=== PATIENT | female | born 1950 | race Caucasian/White ===

== ENCOUNTER 2017-11-04 13:47 | Outpatient (CLI) | payer MEDICARE ==
[2017-11-04] MEDS ORDERED: Gadobenate Dimeglumine 529 MG/1 ML (20ML VIAL) ONE (16:15)
== END 2017-11-04 13:48 | disposition home or self-care (01) ==
LOC: BICMRI 13:47
PROVIDERS: ATTEND Psychiatry & Neurology Neurology
DX: S06.890A Other specified intracranial injury without loss of consciousness, initial encounter (principal)
CPT/HCPCS: 70553; A9579

== ENCOUNTER 2018-08-29 12:59 | Outpatient (CLI) | payer MEDICARE | END 2018-08-29 13:00 | disposition home or self-care (01) | LOC: BICMAMMO 12:59 | PROVIDERS: ATTEND Family Medicine | DX: Z12.31 Encounter for screening mammogram for malignant neoplasm of breast (principal) | CPT/HCPCS: 77063; 77067 ==

== ENCOUNTER 2019-04-09 10:46 | Outpatient (CLI) | payer MEDICARE ==
--- NOTE | 2019-04-09 12:23 | RAD ---
LEFT HIP TWO VIEWS: History: Low back pain, bilateral hip pain. FINDINGS/IMPRESSION: There are mild degenerative changes. No fracture or dislocation or bony destruction is identified. POS: TPC
--- NOTE | 2019-04-09 12:24 | RAD ---
RIGHT HIP History: Bilateral hip pain and low back pain. FINDINGS/IMPRESSION: There are mild degenerative changes. No fracture, dislocation, or bony destruction is identified. POS: T[facility]
== END 2019-04-09 10:47 | disposition home or self-care (01) ==
LOC: TBSIIMAG 10:46
PROVIDERS: ATTEND Neurological Surgery
DX: M51.36 Other intervertebral disc degeneration, lumbar region (principal); M47.816 Spondylosis without myelopathy or radiculopathy, lumbar region

== ENCOUNTER 2019-04-17 09:52 | Outpatient (CLI) | payer MEDICARE ==
--- NOTE | 2019-04-17 10:21 | RAD ---
LUMBAR SPINE THREE VIEWS: INDICATIONS: Lumbar stenosis with neurogenic claudication. FINDINGS: There is retrolisthesis of L3 on L4, L2 on L3, and L1 on L2. The retrolisthesis of L2 on L3 and L1 o n L2 is accentuated with extension but does not appreciably reduce with flexion. The retrolisthesis of L3 on L4 is stable with extension and flexion. There is accentuation of the lordot ic curvature of the lumbar spine with multilevel disc degenerative disease, most pronounced at L1-L2. There is severe facet osteoarthrosis at L3-4 through L5-S1. No acute fracture is evident. S urgical clips are seen within the upper abdomen. IMPRESSION: 1. Abnormal translational motion at L1-L2 and L2-3. 2. Mild retrolisthesis of L1 on L2, L2 on L3, and L3 on L4. 3. No abnormal translational motion is evident at L3-L4. Transcribed Date/Time: 04/17/2019 10:40 AM
== END 2019-04-17 09:53 | disposition home or self-care (01) ==
LOC: RAD 09:52
PROVIDERS: ATTEND Nurse Practitioner Family
DX: M48.062 Spinal stenosis, lumbar region with neurogenic claudication (principal); M43.16 Spondylolisthesis, lumbar region
CPT/HCPCS: 72100

== ENCOUNTER 2019-12-28 15:42 | Outpatient (CLI) | payer MEDICARE ==
--- NOTE | 2019-12-29 09:44 | MMO ---
Bilateral MAMMO Bilat Screen [facility]. CLINICAL HISTORY: Patient is 69 years old and is seen for screening. The patient has no family history of breast cancer. The patient has no personal history of cancer. The patient has a history of left Excisional Biopsy in 2004 - benign. VIEWS: The views performed were: bilateral craniocaudal with tomosynthesis and bilateral mediolateral oblique with tomosynthesis. FILMS COMPARED: The present examination has been compared to prior imaging studies performed at [facility] on 02/03/2015 and 08/29/2018, and at [facility] on 05/31/2010 and 06/12/2011. This study has been interpreted with the assistance of computer-aided detection. MAMMOGRAM FINDINGS: There are scattered fibroglandular densities. There are no suspicious masses, suspicious calcifications, or new areas of architectural distortion. IMPRESSION: THERE IS NO MAMMOGRAPHIC EVIDENCE OF MALIGNANCY. A ROUTINE FOLLOW-UP MAMMOGRAM IN 1 YEAR IS RECOMMENDED. THE RESULTS OF THIS EXAM WERE SENT TO THE PATIENT. ACR BI-RADS Category 1 - Negative MAMMOGRAPHY NOTE: 1. A negative mammogram report should not delay a biopsy if a dominant of clinically suspicious mass is present. 2. Approximately 10% to 15% of breast cancers are not detected by mammography. 3. Adenosis and dense breasts may obscure an underlying neoplasm. Reported by: NAOMI MAURER MD Electonically Signed: [id number]
== END 2019-12-28 15:43 | disposition home or self-care (01) ==
LOC: BICMAMMO 15:42
PROVIDERS: ATTEND Internal Medicine
DX: Z12.31 Encounter for screening mammogram for malignant neoplasm of breast (principal); Z91.89 Other specified personal risk factors, not elsewhere classified
CPT/HCPCS: 77063; 77067

== ENCOUNTER 2020-01-08 15:25 | Outpatient (CLI) | payer MEDICARE ==
--- NOTE | 2020-01-08 16:11 | RAD ---
Exam: XR Finger(s) Rt Min 2 View HISTORY: Strain right small finger. Patient states smashed finger between a heavy box and a door. Continued pa in. COMPARISON: None FINDINGS: No acute fracture, dislocation, or other acute osseous abnormality is identified. IMPRESSION: No acute osseous abnormality is identified.
== END 2020-01-08 15:26 | disposition home or self-care (01) ==
LOC: BICRAD 15:25
PROVIDERS: ATTEND Internal Medicine
DX: S66.911A Strain of unspecified muscle, fascia and tendon at wrist and hand level, right hand, initial encounter (principal)

== ENCOUNTER 2020-06-22 08:31 | Outpatient (CLI) | payer MEDICARE ==
--- NOTE | 2020-06-22 09:13 | ULT ---
ULTRASOUND ABDOMINAL AORTA: HISTORY: Screening for abdominal aortic aneurysm FINDINGS: The abdominal aortic measurements are as follows: Proximal: 2.4 x 2.8cm Mid: 1.9 x 1.8cm Distal: 1.9 x 1.8cm IMPRESSION: No evidence of abdominal aortic aneurysm.
--- NOTE | 2020-06-22 11:25 | BD ---
DEXA SCAN: Date: 06/22/2020[ INDICATION: History of osteoporosis screening in a 69-year-old female. COMPARISON: None. FINDINGS: Lumbar Spine: BMD (g/cm2) L1 1.170 T-Score: 1.6 Z-Score: 3.6 L2 1.223 T-Score: 1.8 Z-Score: 3.9 L3 1.188 T-Score: 0.9 Z-Score: 3.2 L4 1.252 T-Score: 1.7 Z-Score: 4.1 L1-L4 1.209 T-Score: 1.5 Z-Score: 3.7 Left Femoral Neck: 0.863 T-Score: 0.1 Z-Score: 2.0 Left Total Hip: 1.074 T-Score: 1.1 Z-Score: 2.7 IMPRESSION: Based on WHO criteria, the patient's bone mineral density is within normal limits. The patient is at low risk for fracture. POS: AH
== END 2020-06-22 08:32 | disposition home or self-care (01) ==
LOC: BICULT 08:31
PROVIDERS: ATTEND Internal Medicine
DX: Z13.6 Encounter for screening for cardiovascular disorders (principal); Z13.820 Encounter for screening for osteoporosis; Z78.0 Asymptomatic menopausal state
CPT/HCPCS: 76775; 77080

== ENCOUNTER 2020-08-04 10:09 | Emergency (ER) | payer MEDICARE ==
[2020-08-04] MEDS ORDERED: Acetaminophen 500 MG TAB ONE (10:49)
[2020-08-04 10:55] LABS: #Basophils 0.1 thou/uL (0.0-0.2); #Eosinphils 0.2 thou/uL (0.0-0.7); #Lymphocytes 2.2 thou/uL (1.20-3.40); #Monocytes 0.4 thou/uL (0.11-0.59); #Neutrophils 3.7 thou/uL (1.40-6.50); %Basophils 1.1 % (0.0-1.0); %Eosinophils 2.7 % (0.0-10.0); %Lymphocytes 33.4 % (21.0-51.0); %Monocytes 6.2 % (0.0-10.0); %Neutrophils 56.6 % (42.0-75.0); Hemoglobin 11.9 g/dL (12.0-16.0); Mean Corpuscular Hemoglobin 30.8 pg (27.0-31.0); Mean Corpuscular Volume 93.4 fL (78.0-98.0); Mean Platelet Volume 8.9 fL (7.4-10.4); Platelet Count 192 thou/uL (130-400); Red Blood Cell (RBC) Count 3.88 mill/uL (4.20-5.40); White Blood Cell (WBC) Count 6.6 thou/uL (4.8-10.8)
--- NOTE | 2020-08-04 10:55 | RAD ---
PORTABLE CHEST: Date: 08/04/2020 HISTORY: Shortness of breath. FINDINGS: Heart size is within normal limits for portable technique. Mediastinal structures appear unremarkable . Lungs appear clear of any infiltrates. IMPRESSION: No active intrathoracic disease. POS: LA[facility]
[2020-08-04 11:22] LABS: ALT (SGPT) 8 U/L (8-55); AST (SGOT) 11 U/L (5-34); Albumin 4.3 g/dL (3.4-4.8); Alkaline Phosphatase 94 U/L (40-110); Anion Gap 10 mmol/L (10-20); BUN (Urea Nitrogen) 12 mg/dL (9.8-20.1); Bilirubin, Total 0.5 mg/dL (0.2-1.2); Calc. Creatinine Clearance 0 mL/min (70-130); Calcium 9.2 mg/dL (7.8-10.44); Carbon Dioxide 31 mmol/L (23-31); Chloride 105 mmol/L (98-107); Globulin 2.4 g/dL (2.4-3.5); Glucose 97 mg/dL (83-110); Protein, Total 6.7 g/dL (6.0-8.3); Sodium 142 mmol/L (136-145)
[2020-08-04 13:35] LABS: SARS-CoV-2 NAA Rapid Test Not Detected (NotDetected)
--- NOTE | 2020-08-04 17:29 | HP ---
ADMIT/DISCHARGE SUMMARY: DISCHARGE DIAGNOSES: 1. Bradycardia, asymptomatic. 2. Osteoarthritis. HOSPITAL COURSE: The patient is a 69-year-old female, who presents to the hospital with complaints of generalized fatigue going on for the past 2 weeks. 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 At this time, she has tested negative for COVID. She was noted in the ER to have bradycardia, heart rate was in the 40s. She also endorses some body aches and scratchy throat, some chills, but denies any chest tightness. She did state that she had some sharp chest pain. She denies any other cardiac history. The patient stated that she saw Dr. Fierro a long time back for lower extremity swelling. However, a complete workup was done, which was negative. REVIEW OF SYSTEMS: All negative except for the ones mentioned above in the HPI. PAST MEDICAL HISTORY: She has a history of osteoarthritis. PAST SURGICAL HISTORY: She has had cholecystectomy, hysterectomy, and oophorectomy. SOCIAL HISTORY: She denies any alcohol use, drug use, or smoking history. She is a full code. She lives alone with her dog. PHYSICAL EXAMINATION: VITAL SIGNS: Temperature of 98.4, O2 saturations 97% on 2 L, blood pressure 160/60, and heart rate was 62, when I was visiting her; however, she has been known to be in the low 48. LABORATORY RESULTS: As of the following; WBC of 6.6, hemoglobin of 11.9, hematocrit of 36.2, and platelets of 192. Chemistry; sodium of 142, potassium of 4.0, BUN of 12, and creatinine of 0.87. Troponin x1 was negative. BNP was mildly elevated to 100.7. Serology, a rapid for COVID was negative. FAMILY HISTORY: No history of heart disease or stroke. Brother does have cancer. ASSESSMENT AND PLAN: The patient is a 69-year-old female, who initially presented to the hospital for bradycardia; however, she wanted to leave against medical advice. States that she has too many personal things going on. She cannot stay in the hospital to see a metal box maker. I did make an appointment with Dr. Fontana for her on August 10 at 1 p.m. and this was relayed to the patient and also the patient was aware that she needs to come 15 to 20 minutes before her appointment. I also told the patient that if she has worsening symptoms, she needs to come back to the ER or call 911. She will sign the against medical advice papers. I cannot discharge her given her bradycardia and she was pretty significantly symptomatic and this is something new going on for the past couple weeks. We will also check a TSH before she leaves the hospital. Job ID: [id number]
== END 2020-08-04 15:15 | disposition left against medical advice (07) ==
LOC: ERS 10:09
DX: R00.1 Bradycardia, unspecified (principal); R06.02 Shortness of breath; R05 Cough; R09.89 Other specified symptoms and signs involving the circulatory and respiratory systems; R53.83 Other fatigue; M79.10 Myalgia, unspecified site; M19.90 Unspecified osteoarthritis, unspecified site; Z20.828 Contact with and (suspected) exposure to other viral communicable diseases; Z79.899 Other long term (current) drug therapy
CPT/HCPCS: 0240U; 71045; 83880; 84484 ×2; 85379; 93005; 36415; 80053; 84443; 85025

== ENCOUNTER 2020-11-22 14:41 | Outpatient (CLI) | payer MEDICARE | END 2020-11-22 14:42 | disposition home or self-care (01) | LOC: BICRAD 14:41 | PROVIDERS: ATTEND Nurse Practitioner Family | DX: M48.062 Spinal stenosis, lumbar region with neurogenic claudication (principal); M54.6 Pain in thoracic spine; M47.814 Spondylosis without myelopathy or radiculopathy, thoracic region; M47.816 Spondylosis without myelopathy or radiculopathy, lumbar region | CPT/HCPCS: 72072; 72110 ==

== ENCOUNTER 2020-12-15 11:16 | Emergency (ER) | payer MEDICARE ==
[2020-12-15] MEDS ORDERED: Fentanyl 100 MCG/2 ML VIAL ONE (12:02)
[2020-12-15] MEDS ORDERED: Cyclobenzaprine 10 MG TAB ONE (12:14)
[2020-12-15 12:18] LABS: #Basophils 0.1 thou/uL (0.0-0.2); #Lymphocytes 1.3 thou/uL (1.20-3.40); #Monocytes 0.2 thou/uL (0.11-0.59); #Neutrophils 6.5 thou/uL (1.40-6.50); %Basophils 1.1 % (0.0-1.0); %Eosinophils 0.3 % (0.0-10.0); %Lymphocytes 16.2 % (21.0-51.0); %Monocytes 2.8 % (0.0-10.0); %Neutrophils 79.6 % (42.0-75.0); Hemoglobin 13.1 g/dL (12.0-16.0); Mean Corpuscular HGB CONC 33.1 g/dL (32.0-36.0); Mean Corpuscular Hemoglobin 30.2 pg (27.0-31.0); Mean Corpuscular Volume 91.3 fL (78.0-98.0); Mean Platelet Volume 8.7 fL (7.4-10.4); Platelet Count 173 thou/uL (130-400); RBC Distribution Width 11.7 % (11.5-14.5); Red Blood Cell (RBC) Count 4.34 mill/uL (4.20-5.40); White Blood Cell (WBC) Count 8.2 thou/uL (4.8-10.8)
[2020-12-15 12:42] LABS: ALT (SGPT) 9 U/L (8-55); AST (SGOT) 16 U/L (5-34); Albumin 4.2 g/dL (3.4-4.8); Alkaline Phosphatase 104 U/L (40-110); Anion Gap 10 mmol/L (10-20); BUN (Urea Nitrogen) 15 mg/dL (9.8-20.1); Bilirubin, Total 0.7 mg/dL (0.2-1.2); Calc. Creatinine Clearance 0 mL/min (70-130); Calcium 9.5 mg/dL (7.8-10.44); Carbon Dioxide 29 mmol/L (23-31); Chloride 103 mmol/L (98-107); Globulin 2.8 g/dL (2.4-3.5); Glucose 101 mg/dL (83-110); Lipase 5 U/L (8-78); Potassium 4.3 mmol/L (3.5-5.1); Sodium 138 mmol/L (136-145)
[2020-12-15 13:07] LABS: Bacteria/HPF 3+ HPF (None Seen); Bilirubin Negative (Negative); Blood, Urine Negative (Negative); Clarity Turbid (Clear); Glucose, Urine (Dipstick) Normal (Negative); Ketone, Urine Negative (Negative); Leukocyte 500 Leu/uL (Negative); Nitrite Negative (Negative); Protein, Urine (Dipstick) Negative (Neg-Trace); Specific Gravity, Urine 1.007 (1.002-1.036); Squamous Epithelial 0-3 HPF (0-3); Transitional Epithelial 0-3 HPF (None Seen); Urobilinogen Normal mg/dL (Less than 2); WBC/HPF Greater than 50 HPF (0-3)
[2020-12-15] MEDS ORDERED: Morphine 4 MG/ML VIAL ONE (13:24)
== END 2020-12-15 15:03 | disposition home or self-care (01) ==
LOC: ERS 11:16
DX: M47.814 Spondylosis without myelopathy or radiculopathy, thoracic region (principal); N30.90 Cystitis, unspecified without hematuria; M19.90 Unspecified osteoarthritis, unspecified site; Z79.899 Other long term (current) drug therapy; Z79.82 Long term (current) use of aspirin
CPT/HCPCS: 72128; 72131; 80053; 81003; 81015; 83690; 84484; 85025; 87077; 87086; 87186; 93005; 94760; 96374; 96375; J2270; J3010

== ENCOUNTER 2020-12-16 12:42 | Outpatient (CLI) | payer MEDICARE | END 2020-12-16 12:43 | disposition home or self-care (01) | LOC: TBSIIMAG 12:42 | PROVIDERS: ATTEND Nurse Practitioner Family | DX: M47.22 Other spondylosis with radiculopathy, cervical region (principal); M47.814 Spondylosis without myelopathy or radiculopathy, thoracic region; M51.34 Other intervertebral disc degeneration, thoracic region; M48.04 Spinal stenosis, thoracic region | CPT/HCPCS: 72146; 72148 ==

== ENCOUNTER 2021-03-30 14:25 | Outpatient (CLI) | payer MEDICARE | END 2021-03-30 14:26 | disposition home or self-care (01) | LOC: BICCT 14:25 | PROVIDERS: ATTEND Psychiatry & Neurology Neurology | DX: G43.109 Migraine with aura, not intractable, without status migrainosus (principal) | CPT/HCPCS: 70450 ==

== ENCOUNTER 2021-08-23 12:48 | Inpatient (IN) | payer MEDICARE ==
[~2021-08-23 12:48] MED LIST: Iopamidol-370 76% 500 ML 1 ML ONE
[2021-08-23 13:53] LABS: Hemoglobin 10.8 g/dL (12.0-16.0); Mean Corpuscular HGB CONC 33.4 g/dL (32.0-36.0); Mean Corpuscular Hemoglobin 31.1 pg (27.0-31.0); Mean Corpuscular Volume 93.1 fL (78.0-98.0); Mean Platelet Volume 7.5 fL (7.4-10.4); Platelet Count 209 thou/uL (130-400); RBC Distribution Width 11.5 % (11.5-14.5); Red Blood Cell (RBC) Count 3.48 mill/uL (4.20-5.40); White Blood Cell (WBC) Count 20.5 thou/uL (4.8-10.8)
[2021-08-23 14:05] LABS: PTT 79.6 sec (22.9-36.1); Prothrombin Time 57.6 sec (12.0-14.7)
[2021-08-23 14:08] LABS: INR-International Normal Ratio 6.3
[2021-08-23 14:13] LABS: ALT (SGPT) 94 U/L (8-55); AST (SGOT) 146 U/L (5-34); Albumin 2.8 g/dL (3.4-4.8); Alkaline Phosphatase 137 U/L (40-110); Anion Gap 9 mmol/L (10-20); BUN (Urea Nitrogen) 10 mg/dL (9.8-20.1); CK (CPK) 70 U/L (29-168); Calc. Creatinine Clearance 0 mL/min (70-130); Calcium 7.9 mg/dL (7.8-10.44); Carbon Dioxide 33 mmol/L (23-31); Chloride 100 mmol/L (98-107); Globulin 2.4 g/dL (2.4-3.5); Glucose 116 mg/dL (83-110); Potassium 3.1 mmol/L (3.5-5.1); Protein, Total 5.2 g/dL (5.8-8.1); Sodium 139 mmol/L (136-145)
[2021-08-23 14:14] LABS: Band 17 % (5-11); Lymphocytes 7 % (21-51); MDiff Complete? YES; Monocytes 3 % (0-10); Neutrophil 71 % (42-75); Platelet Morphology Comment Appears Adequate; Polychromasia SLIGHT = 2-3 cells (100X) (0-2/hpf); Reactive Lymphocytes 1 % (0-10)
[2021-08-23 14:36] LABS: CKMB 0.5 ng/mL (0-6.6)
[2021-08-23] MEDS ORDERED: Cefepime 2 GM VIAL ONE (14:39)
[2021-08-23] MEDS ORDERED: VANCOMYCIN 1.75 GM/350 ML BAG 1.75 GM in Premix Bag 1 BAG IVPB SCH (15:00)
[2021-08-23 15:08] LABS: Bilirubin Negative (Negative); Blood, Urine Negative (Negative); Clarity Clear (Clear); Glucose, Urine (Dipstick) Normal (Negative); Ketone, Urine Negative (Negative); Leukocyte Negative Leu/uL (Negative); Nitrite Negative (Negative); Protein, Urine (Dipstick) 10 mg/dL (Neg-Trace); Specific Gravity, Urine 1.013 (1.002-1.036); Urobilinogen Normal mg/dL (Less than 2); pH, Urine 5.5 (5.0-9.0)
[2021-08-23] MEDS ORDERED: HUM PROTHROMBIN CPLX IV SCH (16:00)
[2021-08-23] MEDS ORDERED: [UNRECOGNIZED DRUG - OTHER] IV SCH (16:00)
[2021-08-23] MEDS ORDERED: HUMAN PROTHROMBIN COMPLX IV SCH (16:00)
[2021-08-23] MEDS ORDERED: Phytonadione 10 MG/ML AMP ONE (16:14)
[2021-08-23 16:28] LABS: SARS-CoV-2 NAA Rapid Test Not Detected (NotDetected)
[2021-08-23] MEDS ORDERED: NS 0.9% w/ 40 MEQ KCL 1,000 ML IV SCH (16:30)
[2021-08-23] MEDS ORDERED: Electrolyte Replacement Protocol FS PRN (16:30)
[2021-08-23] MEDS ORDERED: Potassium Chloride 20 MEQ TAB PO SCH (16:30)
[2021-08-23] MEDS ORDERED: Electrolyte Replacement Protocol 1 EACH FS SCH (16:30)
[2021-08-23 17:03] LABS: Magnesium 1.5 mg/dL (1.6-2.6)
[2021-08-23 17:13] LABS: Phosphorus 1.6 mg/dL (2.3-4.7)
[2021-08-23 17:39] LABS: Troponin I 0.074 ng/mL (< 0.028)
[2021-08-23] MEDS ORDERED: Magnesium Sulfate 4 GM in Sodium Chloride 0.9% 250 ML 250 ML IVPB SCH (17:45)
[2021-08-23] MEDS ORDERED: Ondansetron ODT 4 MG TAB PO PRN (18:53)
[2021-08-23] MEDS ORDERED: Loperamide HCl 2 MG CAP PO PRN (18:53)
[2021-08-23] MEDS ORDERED: Acetaminophen 650 MG Suppository PR PRN (18:53)
[2021-08-23] MEDS ORDERED: Ondansetron PF 4 MG/2 ML Vial IVP PRN (18:53)
[2021-08-23 20:42] LABS: Platelet Count 210 thou/uL (130-400)
[2021-08-23] MEDS ORDERED: Norepinephrine 8 MG/0.9% NS 250 ML ONE (20:42)
[2021-08-23] MEDS ORDERED: Pantoprazole 40 MG VIAL IVP SCH (21:00)
[2021-08-23] MEDS ORDERED: Norepinephrine 8 MG/0.9% NS 250 ML IVPB SCH (21:00)
[2021-08-23 21:07] LABS: Troponin I 0.038 ng/mL (< 0.028)
[2021-08-23 21:28] LABS: Mean Corpuscular HGB CONC 32.5 g/dL (32.0-36.0); Mean Corpuscular Hemoglobin 30.4 pg (27.0-31.0); Mean Corpuscular Volume 93.6 fL (78.0-98.0); Mean Platelet Volume 8.4 fL (7.4-10.4); Platelet Count 221 thou/uL (130-400); RBC Distribution Width 11.7 % (11.5-14.5); Red Blood Cell (RBC) Count 3.63 mill/uL (4.20-5.40); White Blood Cell (WBC) Count 21.6 thou/uL (4.8-10.8)
[2021-08-23 21:46] LABS: Band 16 % (5-11); Hypochromia SLIGHT = 6-15 cells (100X) (0-5/hpf); Lymphocytes 7 % (21-51); MDiff Complete? YES; Monocytes 16 % (0-10); Neutrophil 61 % (42-75); Platelet Morphology Comment Appears Adequate
[2021-08-23] MEDS: Sodium Chloride 0.9% 1,000 ML IV SCH (22:07)
[2021-08-23 22:23] LABS: ALT (SGPT) 86 U/L (8-55); AST (SGOT) 112 U/L (5-34); Albumin 2.6 g/dL (3.4-4.8); Alkaline Phosphatase 128 U/L (40-110); Anion Gap 11 mmol/L (10-20); BUN (Urea Nitrogen) 13 mg/dL (9.8-20.1); Bilirubin, Total 1.3 mg/dL (0.2-1.2); Calc. Creatinine Clearance 77 mL/min (70-130); Calcium 7.5 mg/dL (7.8-10.44); Carbon Dioxide 27 mmol/L (23-31); Chloride 103 mmol/L (98-107); Globulin 2.3 g/dL (2.4-3.5); Glucose 104 mg/dL (83-110); Protein, Total 4.9 g/dL (5.8-8.1); Sodium 138 mmol/L (136-145)
[2021-08-23 22:26] LABS: Potassium 2.9 mmol/L (3.5-5.1)
[2021-08-23] MEDS ORDERED: Potassium Phosphate 15 MMOL in Sodium Chloride 0.9% 100 ML IVPB SCH (23:00)
[2021-08-24 00:07] LABS: Hemoglobin 10.5 g/dL (12.0-16.0)
[2021-08-24] MEDS: Potassium Chloride 20 MEQ in Premix Bag 1 BAG IVPB SCH ×3 (00:11→05:39)
[2021-08-24] MEDS ORDERED: Cefepime 1 GM in Sodium Chloride 0.9% 100 ML IVPB SCH ×2 (02:00→03:00)
[2021-08-24] MEDS ORDERED: Vancomycin 1 GM in Premix Bag 1 BAG IVPB SCH (03:00)
[2021-08-24 04:02] LABS: INR-International Normal Ratio 1.4; PTT 25.4 sec (22.9-36.1); Prothrombin Time 17.1 sec (12.0-14.7)
[2021-08-24 04:13] LABS: Anion Gap 12 mmol/L (10-20); BUN (Urea Nitrogen) 12 mg/dL (9.8-20.1); Calc. Creatinine Clearance 89 mL/min (70-130); Calcium 7.6 mg/dL (7.8-10.44); Carbon Dioxide 25 mmol/L (23-31); Chloride 107 mmol/L (98-107); Glucose 111 mg/dL (83-110); Magnesium 2.5 mg/dL (1.6-2.6); Phosphorus 2.6 mg/dL (2.3-4.7); Potassium 3.6 mmol/L (3.5-5.1); Sodium 140 mmol/L (136-145)
[2021-08-24 04:24] LABS: Hemoglobin 11.2 g/dL (12.0-16.0); Mean Corpuscular HGB CONC 33.4 g/dL (32.0-36.0); Mean Corpuscular Hemoglobin 31.5 pg (27.0-31.0); Mean Corpuscular Volume 94.4 fL (78.0-98.0); Mean Platelet Volume 8.2 fL (7.4-10.4); Platelet Count 193 thou/uL (130-400); RBC Distribution Width 11.5 % (11.5-14.5); Red Blood Cell (RBC) Count 3.57 mill/uL (4.20-5.40); White Blood Cell (WBC) Count 19.9 thou/uL (4.8-10.8)
[2021-08-24 04:25] LABS: Band 27 % (5-11); Hypochromia SLIGHT = 6-15 cells (100X) (0-5/hpf); Lymphocytes 8 % (21-51); MDiff Complete? YES; Monocytes 6 % (0-10); Neutrophil 59 % (42-75); Platelet Morphology Comment Appears Adequate
[2021-08-24] MEDS: Sodium Chloride 0.9% 1,000 ML IV SCH (06:46)
[2021-08-24] MEDS ORDERED: metroNIDAZOLE 500 MG in Premix Bag 1 BAG IVPB SCH (09:00)
[2021-08-24] MEDS: Lactated Ringer's 1,000 ML IV SCH ×2 (09:46→19:28)
[2021-08-24] MEDS: Fidaxomicin 200 MG TAB PO SCH ×2 (09:53→20:09)
[2021-08-24] MEDS ORDERED: Vancomycin 25 MG/ML Oral SOLN PO SCH (12:00)
[2021-08-24] MEDS ORDERED: VANCOMYCIN 1.75 GM/350 ML BAG 1.75 GM in Premix Bag 1 BAG IVPB SCH (16:00)
[2021-08-24] MEDS: Acetaminophen 325 MG TAB PO PRN (19:30)
[2021-08-24] MEDS: Saccharomyces boulardii 250 MG CAP PO SCH (20:08)
[2021-08-25 03:52] LABS: Hemoglobin 10.1 g/dL (12.0-16.0); Mean Corpuscular HGB CONC 33.5 g/dL (32.0-36.0); Mean Corpuscular Hemoglobin 31.2 pg (27.0-31.0); Mean Corpuscular Volume 93.2 fL (78.0-98.0); Mean Platelet Volume 7.8 fL (7.4-10.4); Platelet Count 200 thou/uL (130-400); RBC Distribution Width 11.6 % (11.5-14.5); Red Blood Cell (RBC) Count 3.25 mill/uL (4.20-5.40)
[2021-08-25 04:09] LABS: Anion Gap 9 mmol/L (10-20); BUN (Urea Nitrogen) 10 mg/dL (9.8-20.1); Calc. Creatinine Clearance 102 mL/min (70-130); Calcium 8.1 mg/dL (7.8-10.44); Carbon Dioxide 27 mmol/L (23-31); Chloride 107 mmol/L (98-107); Glucose 104 mg/dL (83-110); Potassium 3.5 mmol/L (3.5-5.1); Sodium 139 mmol/L (136-145)
[2021-08-25] MEDS: Lactated Ringer's 1,000 ML IV SCH ×2 (05:07→16:14)
[2021-08-25 05:16] LABS: Band 29 % (5-11); Eosinophils 2 % (0-10); Lymphocytes 7 % (21-51); MDiff Complete? YES; Monocytes 9 % (0-10); Neutrophil 52 % (42-75); Reactive Lymphocytes 1 % (0-10)
[2021-08-25] MEDS ORDERED: Potassium Chloride 20 MEQ TAB PO SCH (06:15)
[2021-08-25] MEDS: Saccharomyces boulardii 250 MG CAP PO SCH ×2 (07:53→22:01)
[2021-08-25] MEDS: Fidaxomicin 200 MG TAB PO SCH ×2 (07:54→22:01)
[2021-08-25] MEDS ORDERED: ALPRAZolam 1 MG TAB PO PRN (14:45)
[2021-08-25] MEDS: Gabapentin 300 MG CAP PO SCH ×2 (15:45→22:01)
[2021-08-25] MEDS: Acetaminophen 325 MG TAB PO PRN (22:02)
[2021-08-26 06:08] LABS: #Basophils 0.1 thou/uL (0.0-0.2); #Eosinphils 0.5 thou/uL (0.0-0.7); #Lymphocytes 1.8 thou/uL (1.20-3.40); #Monocytes 0.7 thou/uL (0.11-0.59); #Neutrophils 7.7 thou/uL (1.40-6.50); %Basophils 0.6 % (0.0-1.0); %Eosinophils 4.9 % (0.0-10.0); %Lymphocytes 16.9 % (21.0-51.0); %Monocytes 6.2 % (0.0-10.0); %Neutrophils 71.3 % (42.0-75.0); Hemoglobin 9.8 g/dL (12.0-16.0); Mean Corpuscular HGB CONC 31.9 g/dL (32.0-36.0); Mean Corpuscular Hemoglobin 30.1 pg (27.0-31.0); Mean Corpuscular Volume 94.4 fL (78.0-98.0); Mean Platelet Volume 8.3 fL (7.4-10.4); Platelet Count 221 thou/uL (130-400); RBC Distribution Width 11.7 % (11.5-14.5); Red Blood Cell (RBC) Count 3.26 mill/uL (4.20-5.40); White Blood Cell (WBC) Count 10.8 thou/uL (4.8-10.8)
[2021-08-26] MEDS: Lactated Ringer's 1,000 ML IV SCH ×2 (06:15→11:27)
[2021-08-26 06:20] LABS: Anion Gap 7 mmol/L (10-20); BUN (Urea Nitrogen) 7 mg/dL (9.8-20.1); Calc. Creatinine Clearance 113 mL/min (70-130); Calcium 8.2 mg/dL (7.8-10.44); Carbon Dioxide 29 mmol/L (23-31); Chloride 106 mmol/L (98-107); Glucose 80 mg/dL (83-110); Potassium 3.2 mmol/L (3.5-5.1); Sodium 139 mmol/L (136-145)
[2021-08-26] MEDS ORDERED: Potassium Chloride 20 MEQ TAB PO SCH (06:30)
[2021-08-26] MEDS: Gabapentin 300 MG CAP PO SCH ×3 (08:11→21:17)
[2021-08-26] MEDS: Fidaxomicin 200 MG TAB PO SCH ×2 (08:12→21:17)
[2021-08-26] MEDS: OXcarbazepine 150 MG TAB PO SCH (08:12)
[2021-08-26] MEDS: Acetaminophen 325 MG TAB PO PRN ×3 (08:12→21:22)
[2021-08-26] MEDS: Saccharomyces boulardii 250 MG CAP PO SCH ×2 (08:12→21:17)
[2021-08-26] MEDS: Escitalopram Oxalate 20 mg Tablet PO SCH (08:12)
[2021-08-27 07:34] LABS: #Basophils 0.1 thou/uL (0.0-0.2); #Eosinphils 0.4 thou/uL (0.0-0.7); #Monocytes 0.6 thou/uL (0.11-0.59); #Neutrophils 4.5 thou/uL (1.40-6.50); %Basophils 1.1 % (0.0-1.0); %Eosinophils 4.8 % (0.0-10.0); %Lymphocytes 26.5 % (21.0-51.0); %Monocytes 7.4 % (0.0-10.0); %Neutrophils 60.3 % (42.0-75.0); Hemoglobin 10.4 g/dL (12.0-16.0); Mean Corpuscular HGB CONC 32.2 g/dL (32.0-36.0); Mean Corpuscular Hemoglobin 30.2 pg (27.0-31.0); Mean Corpuscular Volume 93.8 fL (78.0-98.0); Mean Platelet Volume 8.4 fL (7.4-10.4); Platelet Count 272 thou/uL (130-400); RBC Distribution Width 11.8 % (11.5-14.5); Red Blood Cell (RBC) Count 3.44 mill/uL (4.20-5.40); White Blood Cell (WBC) Count 7.5 thou/uL (4.8-10.8)
[2021-08-27 07:57] LABS: Anion Gap 12 mmol/L (10-20); BUN (Urea Nitrogen) 5 mg/dL (9.8-20.1); Calc. Creatinine Clearance 107 mL/min (70-130); Calcium 8.3 mg/dL (7.8-10.44); Carbon Dioxide 26 mmol/L (23-31); Chloride 105 mmol/L (98-107); Glucose 82 mg/dL (83-110); Sodium 140 mmol/L (136-145)
[2021-08-27] MEDS: Fidaxomicin 200 MG TAB PO SCH ×2 (08:57→19:41)
[2021-08-27] MEDS: Escitalopram Oxalate 20 mg Tablet PO SCH (08:57)
[2021-08-27] MEDS: Gabapentin 300 MG CAP PO SCH ×3 (08:57→19:41)
[2021-08-27] MEDS: OXcarbazepine 150 MG TAB PO SCH (08:58)
[2021-08-27] MEDS: Saccharomyces boulardii 250 MG CAP PO SCH ×2 (08:58→19:42)
[2021-08-27] MEDS ORDERED: Potassium Chloride 20 MEQ TAB PO SCH (11:00)
[2021-08-27] MEDS: Acetaminophen 325 MG TAB PO PRN ×2 (13:17→19:42)
[2021-08-28] MEDS: OXcarbazepine 150 MG TAB PO SCH (08:26)
[2021-08-28] MEDS: Gabapentin 300 MG CAP PO SCH ×2 (08:26→14:00)
[2021-08-28] MEDS: Escitalopram Oxalate 20 mg Tablet PO SCH (08:26)
[2021-08-28] MEDS: Saccharomyces boulardii 250 MG CAP PO SCH (08:26)
[2021-08-28 08:30] VITALS: BP 165/89; TEMP 98.2
[2021-08-28] MEDS: Fidaxomicin 200 MG TAB PO SCH ×2 (09:10→18:20)
[2021-08-28 12:20] VITALS: BMI 31.6
[2021-08-30 08:15] LABS: Norovirus GI Negative (Negative); Norovirus GII Negative (Negative)
== END 2021-08-28 18:45 | disposition home or self-care (01) | DRG 871 ==
LOC: ERS 12:48 → ERHOLD 17:15 → CCU 21:03 → OBSVTOIN 08-24 07:20 → T4-A 08-25 18:04
PROVIDERS: ADMIT Internal Medicine; ATTEND Internal Medicine
PROC: 3E033XZ Introduction of Vasopressor into Peripheral Vein, Percutaneous Approach (ICD-10-PCS; principal; 2021-08-23)
PROC: 30283B1 Transfusion of Nonautologous 4-Factor Prothrombin Complex Concentrate into Vein, Percutaneous Approach (ICD-10-PCS; 2021-08-23)
DX: A41.9 Sepsis, unspecified organism (principal); R65.21 Severe sepsis with septic shock; E46 Unspecified protein-calorie malnutrition; A04.72 Enterocolitis due to Clostridium difficile, not specified as recurrent; D68.9 Coagulation defect, unspecified; G62.9 Polyneuropathy, unspecified; F32.A Depression, unspecified; Z96.653 Presence of artificial knee joint, bilateral; E83.42 Hypomagnesemia; E87.6 Hypokalemia; E83.39 Other disorders of phosphorus metabolism; D64.9 Anemia, unspecified; M19.90 Unspecified osteoarthritis, unspecified site; I48.91 Unspecified atrial fibrillation; E86.0 Dehydration; Z86.73 Personal history of transient ischemic attack (TIA), and cerebral infarction without residual deficits; Z95.0 Presence of cardiac pacemaker; Z88.1 Allergy status to other antibiotic agents; Z88.8 Allergy status to other drugs, medicaments and biological substances; Z79.899 Other long term (current) drug therapy; Z79.01 Long term (current) use of anticoagulants; Z90.710 Acquired absence of both cervix and uterus; Z90.49 Acquired absence of other specified parts of digestive tract; Z68.31 Body mass index [BMI] 31.0-31.9, adult
CPT/HCPCS: 0240U; 36415; 70450; 71045; 74018; 74177; 76705; 80048; 80053; 81003; 82274; 82533; 82550; 82553; 83605; 83630; 83735; 84100; 84484; 85025; 85610; 85652; 85730; 86140; 86850; 86900; 86901; 87040; 87045; 87046; 87086; 87324; 87427; 87449; 87798; 93005; 93306; 96375; 96376; C9113; G0378; J0692; J2405; J3370; J3430; J3475; J3480; J3490; J7050; J7120; J7168; Q9967

== ENCOUNTER 2022-02-22 15:04 | Outpatient (CLI) | payer OTHER, MEDICARE | END 2022-02-22 15:05 | disposition home or self-care (01) | LOC: BICRAD 15:04 | PROVIDERS: ATTEND Nurse Practitioner Family | DX: M47.24 Other spondylosis with radiculopathy, thoracic region (principal) | CPT/HCPCS: 72072 ==

== ENCOUNTER 2022-02-22 22:48 | Emergency (ER) | payer OTHER ==
[2022-02-22] MEDS ORDERED: Boostrix 0.5 ML (Tdap) VIAL ONE (22:59)
[2022-02-22] MEDS ORDERED: Morphine 4 MG/ML VIAL ONE (23:14)
[2022-02-22 23:46] LABS: #Basophils 0.1 thou/uL (0.0-0.2); #Eosinphils 0.2 thou/uL (0.0-0.7); #Lymphocytes 2.6 thou/uL (1.20-3.40); #Monocytes 0.5 thou/uL (0.11-0.59); %Basophils 1.1 % (0.0-1.0); %Eosinophils 3.1 % (0.0-10.0); %Neutrophils 53.9 % (42.0-75.0); Hemoglobin 11.7 g/dL (12.0-16.0); Mean Corpuscular HGB CONC 32.5 g/dL (32.0-36.0); Mean Corpuscular Hemoglobin 30.9 pg (27.0-31.0); Mean Corpuscular Volume 95.3 fL (78.0-98.0); Mean Platelet Volume 7.9 fL (7.4-10.4); Platelet Count 176 thou/uL (130-400); RBC Distribution Width 11.9 % (11.5-14.5); Red Blood Cell (RBC) Count 3.79 mill/uL (4.20-5.40); White Blood Cell (WBC) Count 7.4 thou/uL (4.8-10.8)
[2022-02-22 23:59] LABS: PTT 36.4 sec (22.9-36.1); Prothrombin Time 22.8 sec (12.0-14.7)
[2022-02-23 00:06] LABS: ALT (SGPT) 27 U/L (8-55); AST (SGOT) 29 U/L (5-34); Albumin 4.1 g/dL (3.4-4.8); Alkaline Phosphatase 108 U/L (40-110); Anion Gap 13 mmol/L (10-20); BUN (Urea Nitrogen) 12 mg/dL (9.8-20.1); Bilirubin, Total 0.4 mg/dL (0.2-1.2); Calc. Creatinine Clearance 0 mL/min (70-130); Calcium 9.3 mg/dL (7.8-10.44); Carbon Dioxide 28 mmol/L (23-31); Chloride 100 mmol/L (98-107); Estimated GFR 61; Globulin 2.7 g/dL (2.4-3.5); Glucose 89 mg/dL (83-110); Potassium 3.6 mmol/L (3.5-5.1); Protein, Total 6.8 g/dL (5.8-8.1); Sodium 137 mmol/L (136-145)
[2022-02-23] MEDS ORDERED: Ondansetron PF 4 MG/2 ML Vial ONE (00:42)
[2022-02-23] MEDS ORDERED: Famotidine/PF 20 mg/2ml Vial ONE (02:19)
== END 2022-02-23 03:55 | disposition home or self-care (01) ==
LOC: ERS 22:48
DX: S02.2XXA Fracture of nasal bones, initial encounter for closed fracture (principal); M25.532 Pain in left wrist; E04.1 Nontoxic single thyroid nodule; R10.9 Unspecified abdominal pain; I48.91 Unspecified atrial fibrillation; M19.90 Unspecified osteoarthritis, unspecified site; Z79.82 Long term (current) use of aspirin; Z79.01 Long term (current) use of anticoagulants; Z79.899 Other long term (current) drug therapy; W19.XXXA Unspecified fall, initial encounter
CPT/HCPCS: 29125; 70450; 70486; 71045; 72125; 72128; 72131; 74177; 80053; 85025; 85610; 85730; 90471; 90715; 93005; 96374; 96375; J2270; J2405; S0028

== ENCOUNTER 2022-03-07 15:15 | Outpatient (CLI) | payer OTHER | END 2022-03-07 15:16 | disposition home or self-care (01) | LOC: BICULT 15:15 | PROVIDERS: ATTEND Internal Medicine | DX: E04.2 Nontoxic multinodular goiter (principal) | CPT/HCPCS: 76536 ==

== ENCOUNTER 2022-03-28 12:19 | Day surgery (SDC) | payer OTHER ==
[2022-03-27 12:52] VITALS: BMI 31.3
[2022-03-28] MEDS ORDERED: Sodium Bicarbonate 2.5 MEQ/5 ML VIAL ONE (12:48)
[2022-03-28] MEDS ORDERED: Lidocaine 1% PF 5 ML VIAL ONE (12:48)
[2022-03-28 14:02] VITALS: BP 138/81; TEMP 98
== END 2022-03-28 13:55 | disposition home or self-care (01) ==
LOC: ULT 12:19
PROVIDERS: ATTEND Internal Medicine
PROC: 0G9H3ZX Drainage of Right Thyroid Gland Lobe, Percutaneous Approach, Diagnostic (ICD-10-PCS; principal; 2022-03-28)
DX: E04.1 Nontoxic single thyroid nodule (principal); I48.0 Paroxysmal atrial fibrillation; M15.9 Polyosteoarthritis, unspecified; E78.5 Hyperlipidemia, unspecified; M81.0 Age-related osteoporosis without current pathological fracture; Z86.73 Personal history of transient ischemic attack (TIA), and cerebral infarction without residual deficits; Z23 Encounter for immunization; Z79.01 Long term (current) use of anticoagulants; Z79.899 Other long term (current) drug therapy; Z88.1 Allergy status to other antibiotic agents; Z88.5 Allergy status to narcotic agent; Z88.8 Allergy status to other drugs, medicaments and biological substances
CPT/HCPCS: 10005; 90732; G0009; 88173; 88305; 90471

== ENCOUNTER 2022-08-03 08:12 | Outpatient (CLI) | payer OTHER ==
[2022-08-03 10:15] LABS: Hemoglobin 11.7 g/dL (12.0-15.5); Mean Corpuscular HGB CONC 32.8 g/dL (32.0-36.0); Mean Corpuscular Hemoglobin 30.8 pg (27.0-33.0); Mean Corpuscular Volume 93.9 fl (81.6-98.3); Mean Platelet Volume 10.7 fl (7.4-10.4); Platelet Count 203 10x3/uL (150-450); White Blood Cell (WBC) Count 6.1 10x3/uL (3.5-10.5)
[2022-08-03 10:32] LABS: INR-International Normal Ratio 2.3; PTT 37.8 sec (22.0-33.0)
[2022-08-03 10:39] LABS: Anion Gap 14 mmol/L (10-20); BUN (Urea Nitrogen) 16 mg/dL (9.8-20.1); Calc. Creatinine Clearance 0 mL/min (70-130); Calcium 9.1 mg/dL (7.8-10.44); Carbon Dioxide 28 mmol/L (23-31); Chloride 106 mmol/L (98-107); Estimated GFR 52; Glucose 91 mg/dL (83-110); Potassium 4.8 mmol/L (3.5-5.1); Sodium 143 mmol/L (136-145)
== END 2022-08-03 08:13 | disposition home or self-care (01) ==
LOC: LABBT 08:12
PROVIDERS: ATTEND Otolaryngology Plastic Surgery within the Head & Neck
DX: Z01.818 Encounter for other preprocedural examination (principal); E04.1 Nontoxic single thyroid nodule; R09.01 Asphyxia; R22.1 Localized swelling, mass and lump, neck
CPT/HCPCS: 80048; 85027; 85610; 85730; 93005; 93010

== ENCOUNTER 2023-11-04 07:23 | Outpatient (CLI) | payer OTHER | END 2023-11-04 07:24 | disposition home or self-care (01) | LOC: MRI 07:23 | PROVIDERS: ATTEND Specialist | DX: M48.062 Spinal stenosis, lumbar region with neurogenic claudication (principal); M51.36 Other intervertebral disc degeneration, lumbar region; M51.35 Other intervertebral disc degeneration, thoracolumbar region | CPT/HCPCS: 72148 ==

== ENCOUNTER 2024-02-07 16:24 | Emergency (ER) | payer OTHER ==
[2024-02-07] MEDS ORDERED: fentaNYL 50 mcg/mL 1 mL Vial ONE (17:58)
== END 2024-02-07 19:37 | disposition home or self-care (01) ==
LOC: ERS 16:24
DX: M79.10 Myalgia, unspecified site (principal); I48.91 Unspecified atrial fibrillation; Z79.01 Long term (current) use of anticoagulants; Z55.6 Problems related to health literacy
CPT/HCPCS: 70450; 71045; 72125; 72128; 72131; 73030; 73610; 96374; 99284; J3010

== ENCOUNTER 2025-07-20 07:37 | Outpatient (CLI) | payer OTHER | END 2025-07-20 07:38 | disposition home or self-care (01) | LOC: BICCT 07:37 | PROVIDERS: ATTEND Internal Medicine | DX: R07.82 Intercostal pain (principal); R91.1 Solitary pulmonary nodule | CPT/HCPCS: 71250 ==

== ENCOUNTER 2025-08-11 15:22 | Outpatient (CLI) | payer OTHER | END 2025-08-11 15:23 | disposition home or self-care (01) | LOC: BICMAMMO 15:22 | PROVIDERS: ATTEND Internal Medicine | DX: Z12.31 Encounter for screening mammogram for malignant neoplasm of breast (principal); Z91.89 Other specified personal risk factors, not elsewhere classified | CPT/HCPCS: 77063; 77067 ==